=== PATIENT | male | born 1970 | race Caucasian/White ===

== ENCOUNTER 2022-08-06 05:11 | Emergency (ER) | payer BC, SELFPAY ==
[2022-08-06 05:26] VITALS: BP 132/89; PULSE 99; RESP 18; TEMP 36.6; O2SAT 98
--- NOTE | 2022-08-07 19:16 | ED.PSYCH ---
HPI - Psych General Chief Complaint: Psychiatric Problem/Disorder Stated Complaint: Suidical ideation Time Seen by Provider: 08/06/22 05:57 History of Present Illness HPI Narrative: pt sister called 911 worried that her brother was going to do self harm. Pt states that he is having a rough time because his girlfriend of 12 years moved to [place]. Pt had a few drinks, said he was able to talk to his sister about feeling sad about not going to [place] with his girlfriend. Pt states he does not want to do self harm. just needed to talk. 51-year-old man presenting to the emergency department accompanied by police though voluntary with concern of suicidal ideation. He admits that things have been difficult lately. Long-term relationship move to months ago to [place]. Apparently there was still communication but is really having a hard time with this relationship being over. Apparently reached out to his sister's to talk. They did come by and the way he describes it 04 10 and then the other and next thing he knows the police are showing up. He does not voluntarily or least initially disclose that there was a gun present nor that he had been drinking. 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 I press him on this and it is clear that he does not work anymore this weekend. Animated in conversation and description of events. Maintains that he is not suicidal. It may have these thoughts though from time to time. Not engaged in any therapy nor does he have any interest in it. Speaking with sister to whom initially spoke when she arrived they found AA gun sitting next to him on the couch. There was some discrepancy in this recounting of events where Pradip says that he voluntarily said ?I have a gun sitting here?. Apparently demonstrated that had an empty clip. Sister said that she she did not feel comfortable with that being there prompting him to remove the clip. to sister Diana apparently did remove the gone and bullets that were in the home in the closet from the home. Sister describes Pradip saying things to the effect of I want to be done with all this, can do it anymore. Sister subsequently called non emergent police number noting that she did know what to do. Is wondering if she might have over reacted. Has not been in conversation with Marquis for some time. Further conversation does acknowledge that a lot of that might seem to come down to alcohol. Later conversation with Pradip he does acknowledge drinking. Does have a history of DUI and is driven back and forth from work by his father. Sounds like has transition to night shifts more recently. 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 This is how he maintains his community he says. Father who arrives later describes his own history of alcoholism and AA. Tearfully father acknowledges that he might be enabling Pradip in some ways but feels that it is best to be able to spend time with him. Both of them acknowledge in longer conversation how much the enjoy each other's company. Are very much looking forward to outdoor activities like continuing and outdoor motor vehicle pursuits together as the weather is warming up. Pradip would consider this his therapy. Has a primary care provider of sorts but does not see them regularly. Father feels further that is been tough for Pradip partly in this transition to night shifts to be from or having lost some friends. Related Data Home Medications Medication Instructions Recorded Confirmed No Known Home Medications 08/06/22 08/06/22 Allergies Allergy/AdvReac Type Severity Reaction Status Date / Time No Known Drug Allergies Allergy Verified 08/06/22 05:26 Review of Systems Status of ROS: Reports: 6 or more systems reviewed and unremarkable except as noted in History and below PFSH PFS Social History Smoking Status: Current every day smoker What tobacco products do you use: cigarettes Do you use any of these nicotine containing products: None Second hand tobacco smoke exposure: Yes How often do you have a drink containing alcohol: 2-4 times a month How many standard drinks containing alcohol do you have on a typical day: 5 or 6 How often do you have six or more drinks on one occasion: Never AUDIT-C Alcohol total score: 4 Non-prescribed substance use: denies use Exam Narrative: Exam Narrative: Pleasant. Animated. Breathing easily. Head is atraumatic. Skin is warm and dry without indication of self-harm. Initially face little flushed. Lungs appear to be clear. Heart in an elevated rate. Is at times introspective other times deflects and in denial. Mood is alternating depressed and hopeful affect at times over compensating with positivity. Does appear move mildly intoxicated. Const: Documenting provider has reviewed patient's vital signs: yes Course Vital Signs Vital signs: Initial Vital Signs Temperature 97.9 F 08/06/22 05:26 Temperature Source Temporal Artery Scan 08/06/22 05:26 Pulse Rate 99 08/06/22 05:26 Pulse Rhythm Regular 08/06/22 05:26 Respiratory Rate 18 08/06/22 05:26 Blood Pressure 132/89 08/06/22 05:26 Blood Pressure Mean 103 08/06/22 05:26 Blood Pressure Position Semi-Fowlers 08/06/22 05:26 Pulse Oximetry 98 08/06/22 05:26 Oxygen Delivery Method Room Air 08/06/22 05:26 Vital Signs Temperature 97.9 F 08/06/22 05:26 Pulse Rate 99 08/06/22 05:26 Respiratory Rate 18 08/06/22 05:26 Blood Pressure 132/89 08/06/22 05:26 Pulse Oximetry 98 08/06/22 05:26 Oxygen Delivery Method Room Air 08/06/22 05:26 Temperature 97.9 F 08/06/22 05:26 Pulse Rate 99 08/06/22 05:26 Respiratory Rate 18 08/06/22 05:26 Blood Pressure 132/89 08/06/22 05:26 Pulse Oximetry 98 08/06/22 05:26 Oxygen Delivery Method Room Air 08/06/22 05:26 MDM - Psych MDM Narrative Medical decision making narrative: I sat down further and talked with dad for sometime individually and then further with Pradip together. They both feel safe departing together looking forward to more time together. Pradip maintains that he is not suicidal. He does not have this self defense weapon as he references it, any more. Really wants to depart the emergency department repeatedly maintaining this in what appears to be mild intoxicated state and that he is not suicidal. Has no interest in next level cares. Is adamant that will be safe. Father comfortable going with. Discharge Plan Discharge Clinical Impression: Other social stressor, Suicidal ideation, Alcohol intoxication Patient Disposition: Home w/ Parent or Adult Condition: Improved Additional Instructions: I think it is great that you have family that loves you and wants to spend time with you. I challenge you to cut alcohol out of your relationships with your family and other social relationships, further not did drink at all as you suggest you are able to do. I am hopeful that these activities outside, time outside, and in particular with your dad will provide what you are looking for. Not getting quality and regular sleep in normal circadian rhythms makes it hard to be clear headed. I do think that working nights might make things more difficult for you. Please keep reaching out though to if family. I would encourage you to seek out somebody professional to talk to given this new stressor, this loss of relationship you are experiencing. If nothing else, AA does provide community and relationship. Prescriptions: No Action No Known Home Medications Follow Up/Referrals: Ian Nickerson MD [Primary Care Provider] - Stand Alone Forms: [employer] Info Instructions
== END 2022-08-06 08:24 | disposition home or self-care (01) ==
PROVIDERS: Emergency Provider Family Medicine; PCP Family Medicine
DX: R45.851 Suicidal ideations (principal); F10.129 Alcohol abuse with intoxication, unspecified; F43.9 Reaction to severe stress, unspecified
CPT/HCPCS: 99283; 99284